=== PATIENT | male | born 1945 | race Native Hawaiian/Other Pacific Islander ===

== ENCOUNTER 2018-07-07 14:02 | Inpatient (IN) | payer OTHER, MEDICAID ==
[2018-07-07 14:33] VITALS: O2SAT 100
[2018-07-07 15:13] VITALS: BMI 21.4
--- NOTE | 2018-07-07 15:16 | ED PDOC ---
HPI: General Adult Time Seen by Provider: 07/07/18 14:48 Chief Complaint (Nursing): Psychiatric Evaluation History Per: Crate Builder Onset/Duration Of Symptoms: Unknown Current Symptoms Are (Timing): Still Present Severity: Moderate Additional Complaint(s): Referred by PMD for worsening cognitive status, noted today but has been gradually getting worse over past few weeks. Denies complaints at present time. H/o Parkinson's disease and poor historian. Crate Builder [id number]. Past Medical History Vital Signs: Last Vital Signs Temp 97.6 F 07/07/18 14:33 Pulse 63 07/07/18 14:33 Resp 20 07/07/18 14:33 BP 108/65 07/07/18 14:33 Pulse Ox 100 07/07/18 14:33 - Medical History PMH: Diabetes, Parkinson's Disease - Family History Family History: States: Unknown Family Hx - Allergies Allergies/Adverse Reactions: Allergies Allergy/AdvReac Type Severity Reaction Status Date / Time No Known Allergies Allergy Verified 07/07/18 14:31 Review of Systems ROS Statement: Except As Marked, All Systems Reviewed And Found Negative Neurological: Positive for: Weakness, Confusion Physical Exam - Reviewed Nursing Documentation Reviewed: Yes Vital Signs Reviewed: Yes - Physical Exam Appears: Positive for: Non-toxic, No Acute Distress Head Exam: Positive for: ATRAUMATIC, NORMAL INSPECTION, NORMOCEPHALIC Skin: Positive for: Normal Color, Warm, DRY Eye Exam: Positive for: EOMI, Normal appearance, PERRL ENT: Positive for: Normal ENT Inspection Neck: Positive for: Normal, Painless ROM Cardiovascular/Chest: Positive for: Regular Rate, Rhythm Respiratory: Positive for: CNT, Normal Breath Sounds Gastrointestinal/Abdominal: Positive for: Normal Exam, Soft Back: Positive for: Normal Inspection Extremity: Positive for: Normal ROM Neurological/Psych: Positive for: Awake, Mood/Affect (flat). Negative for: Normal Tone (Rigidity upper and lower ext), Motor/Sensory Deficits - Laboratory Results Result Diagrams: 07/07/18 15:00 07/07/18 15:00 - ECG O2 Sat by Pulse Oximetry: 100 Medical Decision Making Medical Decision Making: Medically stable for psychiatric admission Disposition - Clinical Impression Clinical Impression: Depression, Parkinson disease - Patient ED Disposition Is Patient to be Admitted: Yes - Disposition Disposition Time: 16:13 Condition: FAIR Forms: [employer] (Malaysian) - Pt Status Changed To: Hospital Disposition Of: Inpatient - Admit Certification Admit to Inpatient:: After my assessment, the patient will require hospitalization for at least two midnights. This is because of the severity of symptoms shown, intensity of services needed, and/or the medical risk in this patient being treated as an outpatient. - POA Present On Arrival: None
[2018-07-07 15:39] LABS: BASO % 0.3 % (0.0-2.0); EOS # 0.1 K/uL (0.0-0.7); EOS % 1.6 % (0.0-4.0); HEMOGLOBIN 11.7 g/dL (12.0-18.0); LYMPH # 2.1 K/uL (1.0-4.3); LYMPH % 36.7 % (20.0-40.0); MEAN CELL VOLUME 92.6 fl (80.0-94.0); MEAN CORPUSCULAR HEMOGLOBIN 30.9 pg (27.0-31.0); MEAN CORPUSCULAR HGB CONC 33.3 g/dL (33.0-37.0); MEAN PLATELET VOLUME 9.7 fl (7.2-11.7); MONO # 0.6 K/uL (0.0-0.8); MONO % 11.5 % (0.0-10.0); NEUT # 2.8 K/uL (1.8-7.0); NEUT % 49.9 % (50.0-75.0); NRBC % 0.1 % (0.0-0.0); RBC 3.79 Mil/uL (4.40-5.90); RED CELL DISTRIBUTION WIDTH 13.1 % (11.5-14.5); WHITE BLOOD COUNT 5.6 K/uL (4.8-10.8)
[2018-07-07 15:48] LABS: ALB/GLOB RATIO 1.3 (1.0-2.1); ALBUMIN 3.9 g/dL (3.5-5.0); ALT/SGPT 12 U/L (21-72); AST/SGOT 19 U/L (17-59); BLOOD UREA NITROGEN 19 mg/dl (9-20); CALCIUM 9.2 mg/dL (8.4-10.2); GFR NON-AFRICAN AMERICAN > 60
--- NOTE | 2018-07-07 17:32 | RAD ---
Date of service: 07/07/2018 PROCEDURE: CHEST RADIOGRAPH, 1 VIEW HISTORY: Parkinson's Disease COMPARISON: None available. FINDINGS: LUNGS: Clear. PLEURA: No pneumothorax or pleural fluid seen. CARDIOVASCULAR: No aortic atherosclerotic calcification present. Normal. OSSEOUS STRUCTURES: No significant abnormalities. VISUALIZED UPPER ABDOMEN: Normal. OTHER FINDINGS: None. IMPRESSION: No active disease.
[2018-07-07] MEDS ORDERED: Alum-Mag Hydrox-Simethicone Susp (30 mL) PO PRN (20:54)
[2018-07-07] MEDS ORDERED: Bismuth Subsalicylate 262 mg/15 ml Sus (240 ml) PO PRN (20:54)
[2018-07-07] MEDS ORDERED: Magnesium Hydroxide Susp 30 ml UD PO PRN (20:54)
--- NOTE | 2018-07-07 21:30 | PCM.BM ---
<Krishan Campos - Last Filed: 07/07/18 21:28> Treatment Plan Problems - Problems identified on initial assessmt Impuslive Sexual Acts Date Initiated: 07/07/18 Time Initiated: 21:29 Assessment reference: NA Status: Active Impaired Mobility/Physical Therapy Date Initiated: 07/07/18 Time Initiated: 21:29 Assessment reference: NA Status: Active Difficulty with ADLs Date Initiated: 07/07/18 Time Initiated: 21:30 Assessment reference: NA Status: Active Treatment assets and liabiliti Patient Assests: cooperative, good support system Patient Liabilities: dietary restrictions, medical problems - Milieu Protocol Maintain good personal hygiene: every shift Encourage regular showers, every shift Remind patient to perform daily oral care, every shift Assist patient to perform ADL's Maintain personal safety: daily Educate patient to report safety concerns to s jedf, daily Monitor environment for contraband/sharps Medication safety: Monitor for expected outcome, potential side effects: daily, Assess barriers to learning: daily, Assess readiness for medication education: daily <Tyrone Ugalde - Last Filed: 07/09/18 12:06> Family Contact Family involvement: Family/SO is involved Family contact: Patient agrees to contact, Family has been contacted by patient, Telephone contact initiated by staff Family contact name: Kiko (), See (Daughter), Leann (Daughter) Family contacted how many times per week?: 3 Family contact comment: Tutoring Assistant spoke with pt's daughter/POA, See [phone], to gather collateral information. Pt's daughter reported that pt was referred to [facility] by Dr. Toro because he was experiencing hypersexuality, aggressivity, agitation and visual hallucinations. See reported that pt has been yelling trying to get up, masturbating, grabbing breasts of caregivers and attempted to leave the home. See reported that pt will often see people that are not there and think that people are at the house door. See denied that pt has a prior psych history and was diagnosed with Parkinson's Disease in 2000, but became severely debilitated in 2004. See reported that pt's mother had Alzheimer's Disease. See reported that due to the medications too much Dopamine builds up causing these side effects and his medications need to be adjusted. Pt was born in [place] and emig[place] the [place] in the s. 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 See reported that pt requires a blended diet and if he does not abide by that he will experience diarrhea. - Goals for Treatment Patient goals for treatment: Pt unable to formulate goals due to dementia and Parkinson's Disease. Patient's family/SO goals for treatment: Pt's family would like pt's medications adjusted so that his Dopamine can be regulated and his agitation, hypersexuality and hallucinations controlled. Discharge/Continuing Care - Education Needs Education Needs: Family Medication, Family Diagnosis/Disease Process, Family Coping Skills, Family Community resources, Family Aftercare Safety Plan, Patient Medication, Patient Diagnosis/Disease Process, Patient Coping Skills, Patient Community resources, Patient Aftercare Safety Plan - Discharge Discharge Criteria: Tolerates medication w/o severe side effects, Free of paranoid thoughts, Free of agitation, Reduction of target symptoms Discharge to:: Home, With Family - Treatment Team Participation Discussed with Family/SO: Yes Was Patient/Family/SO present at Treatment Team Meeting: Yes
[2018-07-08 07:48] LABS: HDL CHOLESTEROL 48 MG/DL (30-70); IRON 72 ug/dL (49-181)
[2018-07-08 07:59] LABS: % IRON SATURATION 25 % (20-55); LDL CHOLESTEROL 89 mg/dL (0-129); TOTAL IRON BINDING CAPACITY 285 ug/dL (250-450)
[2018-07-08 08:24] LABS: FERRITIN 19.9 ng/Ml (17.9-464)
--- NOTE | 2018-07-08 10:34 | PCM.PSYCH ---
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 As per Dr. Watts, the patient has been diagnosed w/ Parkinsons for the last few years. The patient has been hypersexual at home and with the caregiver. For the last few weeks, the patient has been mas turbating. Dr. Watts stated that he would like the patient admitted to [facility] in order for a readjustment of his psychiatric medication in order to control his hypersexual behavior. Dr. Watts stated that the ideal medication for him would be Nuplavid. Dr. Watts has also witnessed some periods of hallucinations. Dr. Watts will take him back to the program once he is stabilized. Current Medications: Active Medications Generic Name Dose Route Start Last Admin Trade Name Freq PRN Reason Stop Dose Admin Acetaminophen 650 mg 07/07/18 20:54 Tylenol 325mg Tab PO Q4 PRN Pain, moderate (4-7) Al Hydrox/Mg Hydrox/Simethicone 30 ml 07/07/18 20:54 Maalox Plus 30 Ml PO Q4 PRN Dyspepsia Bismuth Subsalicylate 524 mg 07/07/18 20:54 Pepto-Bismol PO Q4 PRN Diarrhea Lorazepam 0.5 mg 07/07/18 20:54 Ativan PO 07/21/18 20:55 HS PRN Insomnia Lorazepam 0.5 mg 07/07/18 20:54 Ativan PO 07/21/18 20:55 Q6 PRN Anixety/Agitation Magnesium Hydroxide 30 ml 07/07/18 20:54 Milk Of Magnesia PO HS PRN Constipation Past Psychiatric History - Past Psychiatric History Explanation of prior treatment: history of dementia due to parkinson disease Pertinent Medical Hx (Current Medical&Sleep Prob, Allergies): Allergies Allergy/AdvReac Type Severity Reaction Status Date / Time No Known Allergies Allergy Verified 07/07/18 14:31 Acetaminophen [Tylenol Extra Strength] 1,000 mg PO BID 07/07/18 Carbidopa/Levodopa [Carbidopa-Levodopa 25-100 Tab] 1 tab PO QID 07/07/18 Cholecalciferol (Vitamin D3) [Vitamin D3] 2,000 unit PO DAILY 07/07/18 Famotidine [Pepcid] 20 mg PO BID 07/07/18 Melatonin 5 mg PO HS PRN 07/07/18 Multivitamin [Multi-Vitamin Daily] 1 tab PO DAILY 07/07/18 Pimavanserin Tartrate [Nuplazid] 34 mg PO DAILY 07/07/18 metFORMIN [glucOPHAGE] 500 mg PO BID 07/07/18 Mental Status Examination - Personal Presentation Personal Presentation: Looks older than stated age Additional comments: unkempt - Affect Additional comments: labile - Motor Activity Motor Activity: Psychomotor Retardation - Reliability in Providing Information Reliability in Providing Information: Poor, due to alteration in thoughts - Speech Speech: Irrelevant - Mood Mood: Anxious, Euphoric - Formal Thought Process Formal Thought Process: Flight of ideas, Word Salad - Cognitive Functions Orientation: Person Attention/Concentration: Easily distracted Judgement: Imparied, as evidence by: Lack of insight into illness - Strength & Assets Inventory Strength & Assets Inventory: Family support - Limitations Additional comments: medical illness DSM 5 DX - DSM 5 DSM 5 Diagnosis: 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
[2018-07-08 16:29] VITALS: RESP 18; TEMP 97.6
--- NOTE | 2018-07-08 19:09 | CARD ---
APPROVED REPORT Date of service: 07/07/2018 EKG Measurement Heart [id number] <Conclusion> Normal sinus rhythm Normal ECG
[2018-07-09 06:05] VITALS: BP 94/57; PULSE 57
[2018-07-09] MEDS ORDERED: Insulin Regular 100 units/ml SC SCH (07:30)
[2018-07-09] MEDS ORDERED: Enoxaparin 40 mg Syringe SC SCH (09:00)
[2018-07-09] MEDS ORDERED: Multivitamin With Minerals Tab PO SCH (09:00)
[2018-07-09] MEDS ORDERED: Cholecalciferol 1,000 INTLU TAB PO SCH (09:00)
[2018-07-09] MEDS ORDERED: Sodium Chloride 0.9% 2,000 ML IV SCH (12:00)
--- NOTE | 2018-07-09 12:00 | PCM.PYCHDC ---
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 referred to ER by private psychiatrist due to inappropriate behaviour as per family pt has been increasingly agitated , exhibiting inappropriate behaviour with hypersexuality,disinhibition and poor judgment pt on evaluation on the unit presenting with very limited speech that is irrelevant,thought process not goal directed , labile affect , appears internally preoccupied Laboratory Data: Abnormal Lab Results 07/08/18 07/08/18 07/08/18 06:15 06:15 19:55 POC Glucose (mg/dL) 232 H Hemoglobin A1c 7.5 H RPR Nonreactive 07/09/18 06:06 POC Glucose (mg/dL) 120 H Hemoglobin A1c RPR Consultations:: List each consultation separately and include: 1. Reason for request. 2. Findings. 3. Follow-up Summary of Hospital Course include:: 1. Description of specific treatment plan utilized for patients during their course of treatmen. 2. Summarize the time- course for resolution of acute symptoms and/or regressed behaviors. 3. Describe issues identified and worked on during hospitalization. 4. Describe medication utilized. 5. Describe medical problems identified and treated. 6. Reassessment of suicide risk Summary of Hospital Course: on second day of hospitalization, pt was noted to be unresponsive by nursing staff an QUALITY CONTROL TECH [employer] was called, pt was transferred to ER for further work up - Final Diagnosis (DSM 5) Condition upon Discharge: FAIR DSM 5: MAJOR NEUROCOGNITIVE DISORDER DUE TO PARKINSON Follow-up Treatment Plan: private psychiatrist requesting pt to be places on Nuedexta/ possibly for emotional liability / medicine not available will start seroquel 12.5mg bid and qhs monitor pt for psychopharmacological effects and side effect profile neuropsychological testing if possible to rule out fronto temporal dementia internal medicine consult neurology consult - Antipsychotic Medications Pt discharged on 2 or more routine antipsychotic medications: No
[2018-07-09] MEDS ORDERED: Iodixanol 320 MG/ML 100 ML BOTTLE IV ONE (12:05)
[2018-07-09] MEDS ORDERED: Sodium Chloride 0.9% 50 ML IV ONE (12:06)
--- NOTE | 2018-07-09 12:41 | CT ---
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 TECHNIQUE: Contiguous axial images of the neck and brain were obtained from the level of the vertex of the skull to the superior mediastinum in the arteriographic phase of enhancement. Coronal and sagittal reformats or also generated. IV contrast dose: 100 cc Visipaque 320 contrast material. Radiation dose: Total exam DLP = 399.16 mGy-cm. This CT exam was performed using one or more of the following dose reduction techniques: Automated exposure control, adjustment of the mA and/or kV according to patient size, and/or use of iterative reconstruction technique. FINDINGS: The aortic arch widely patent with tiny focus of atherosclerotic plaque. Minor crescentic calcified plaque seen along the proximal left subclavian artery just proximal to the take-off of the left vertebral artery.. the common carotid arteries widely patent with tiny calcified plaque seen along the posterior distal margin of the right common carotid artery with no significant stenosis. No evidence of dissection. The distal internal carotid arteries including the petrous cavernous and supraclinoid segments are widely patent. The vertebral arteries are patent throughout left-sided which is larger in caliber/more dominant than the right. Basilar artery patent. The visualized major branches pictcj-gr-Tparax are patent. Slight asymmetry of the A1 segments left-sided which is larger in caliber/more dominant than the right-side. The distal margins of the anterior middle and posterior cerebral arteries are also patent and relatively symmetric. No evidence of large aneurysm nor vascular malformation. OTHER FINDINGS: None IMPRESSION: No evidence of dissection, occlusion or significant stenosis. There is a tiny calcified plaque posterior margin distal right common carotid artery near the bifurcation with no evidence of significant stenosis
--- NOTE | 2018-07-09 12:59 | PCM.RRT ---
DYE JIG OPERATOR Nurse Assessment - Situation DYE JIG OPERATOR Responder Arrival Time: 11:25 DYE JIG OPERATOR Reason for Call: Bradycardia, Change in Mental Status - IV IV Inserted during DYE JIG OPERATOR?: Yes New IV Insertion Tolerance:: Fair - Respiratory Received Nebulizer Treatments: No Was the Patient Ventilated with Bag/Mask 100% O2?: No Secretions Suctioned?: No Was the Patient Intubated?: No Was the Patient Placed on a Ventilator?: No - Medication Medications Administered During DYE JIG OPERATOR: NS Bolus - Diagnostic Test Ordered EKG: Yes Chest X-Ray: No CT Scan: Yes CPR started during DYE JIG OPERATOR?: No I.Reason for DYE JIG OPERATOR - A) Acute Change in Patient: (Select all that apply): Staff member or family is worried about patient, Acute change in mental status Subjective: 72 y/o M with PMhx of dementia, parkinson's disease and DM admitted to [facility] for inappropriate behavior. DYE JIG OPERATOR called by RN at 11:24 due to patient being unresponsive. DYE JIG OPERATOR team arrived on site with Dr. Julien. Patient unresponsive to verbal and tactile stimuli. Initial vitals: HR 46, BP 53/21, Initial accuckeck 211. On physical exam: Patient is unresponsive to commends and deep tactile stimulus. Bradycardia. Breath sounds present. Bolus of food on back of toung(removed). IV line inserted and patient started on NS bolus. Patient reg ained consciousness, moving all his extremity, opening eyes, responding verbally(In words, unable to formulate full sentence). Repeat Vitals BP 73/44. Unable to get EKG due to hairy chest. CT head ordered. Patient transported to ER for further evaluation including CT head. - Neurological Status (Select all that apply): Confused, Lethargic, Weakness Other (Please specify): Nonrespinsive but became responsive, alert, following commands after 5-7min - Constitutional Appears: Confused - Head Head Exam: ATRAUMATIC, NORMAL INSPECTION, NORMOCEPHALIC - Respiratory Exam Respiratory Exam: Clear to Ausculation Bilateral, NORMAL BREATHING PATTERN - Cardiovascular Exam Cardiovascular Exam: Bradycardia, +S1, +S2 - Neurological Exam Neurological Exam: Alert, Altered, Awake. absent: Oriented x3 Plan - Assessment of Findings&Treatment Plan 72 y/o M with PMhx of dementia, parkinson's disease and DM admitted to [facility] for inappropriate behavior. DYE JIG OPERATOR called by RN at 11:24 due to patient being unresponsive. Initial vitals: HR 46, BP 53/21, Initial accuckeck 211. Repeat Vitals BP 73/44 A/P: 72 y/o M with DM, parkinson and dementia. DYE JIG OPERATOR called for change in mental status. Hypotension and Bradycardia likely secondary to psych medications. - IV inserted, NS bolus started - EKG ordered stat, Unable to obtain in Psych unit, TO be dine in ED - CT head stat - Patient regained consciousness, responding - Transferred to ED for further evaluation Case discussed with Dr. Julien
[2018-07-10 21:53] LABS: FOLATE > 20.0 ng/mL
--- NOTE | 2018-07-11 10:31 | CP.PCM.HP ---
History of Present Illness - History of Present Illness History of Present Illness: CC: Refrred by the Psychiatrist for adjustment f medication History of Present Illness A 72yoM with H/O Parkinsonism, Hypotension and Psychotic behaviour was sent to [facility] for Geropsych admission due to Behavioral issues including Visual Hallucination and Hypersexuality. Patient is on Sinemet, and will adjust to avoid psychotic behaviour. Present on Admission - Present on Admission Any Indicators Present on Admission: No Review of Systems - Review of Systems All systems: reviewed and no additional remarkable complaints except Review of Systems: as per HPI Past Patient History - Past Medical History & Family History Past Medical History?: Yes Past Family History: Reviewed and not pertinent - Past Social History Smoking Status: Unknown If Ever Smoked Alcohol: None Drugs: Denies - CARDIAC Hx Cardiac Disorders: No Hx Hypertension: No - PULMONARY Hx Tuberculosis: No - NEUROLOGICAL HX Cerebrovascular Accident: No Hx Seizures: No - ENDOCRINE/METABOLIC Hx Diabetes Mellitus Type 2: Yes - HEMATOLOGICAL/ONCOLOGICAL Hx Cancer: Yes Hx Human Immunodeficiency Virus (HIV): No - MUSCULOSKELETAL/RHEUMATOLOGICAL Hx Falls: No - GENITOURINARY/GYNECOLOGICAL Hx Sexually Transmitted Disorders: No - PSYCHIATRIC Hx Substance Use: No Meds Home Medications: Home Medication List Medication Instructions Recorded Confirmed Type Acetaminophen [Tylenol 325mg tab] 650 mg PO Q4 PRN tab 07/09/18 Rx Aluminum Hydroxide/Magnesium 30 ml PO Q4 PRN udc 07/09/18 Rx [Maalox Plus 30 ml] Bismuth Subsalicylate 524 mg PO Q4 PRN dose 07/09/18 Rx [Pepto-Bismol] Carbidopa/Levodopa 25/100 mg 1 tab PO QID tab 07/09/18 Rx [Sinemet] Cholecalciferol [Vitamin D 1000 IU] 1,000 intlu PO DAILY tab 07/09/18 Rx Enoxaparin [Lovenox] 40 mg SC DAILY syr 07/09/18 Rx Insulin Human Regular [HumuLIN R] 0 units SC ACHS ml 07/09/18 Rx LORazepam [Ativan] 0.5 mg PO Q6 PRN tab 07/09/18 Rx Magnesium Hydroxide [Milk Of 30 ml PO HS PRN udc 07/09/18 Rx Magnesia] Multimineral/Multivitamin 1 tab PO DAILY tab 07/09/18 Rx [Therapeutic-M Tab] QUEtiapine [Seroquel] 12.5 mg PO HS tab 07/09/18 Rx Allergies/Adverse Reactions: Allergies Allergy/AdvReac Type Severity Reaction Status Date / Time No Known Allergies Allergy Verified 07/07/18 14:31 Physical Exam - Constitutional Appears: No Acute Distress, Cachectic, Chronically Ill - Head Exam Head Exam: ATRAUMATIC, NORMAL INSPECTION, NORMOCEPHALIC - Eye Exam Eye Exam: EOMI, Normal appearance, PERRL Pupil Exam: NORMAL ACCOMODATION, PERRL - ENT Exam ENT Exam: Mucous Membranes Dry, Normal Exam - Neck Exam Neck exam: Positive for: Normal Inspection - Respiratory Exam Respiratory Exam: Clear to Auscultation Bilateral, NORMAL BREATHING PATTERN - Cardiovascular Exam Cardiovascular Exam: REGULAR RHYTHM, +S1, +S2 - GI/Abdominal Exam GI & Abdominal Exam: Normal Bowel Sounds, Soft. absent: Tenderness - Extremities Exam Extremities exam: Positive for: normal capillary refill, normal inspection - Back Exam Back exam: NORMAL INSPECTION - Neurological Exam Neurological exam: Abnormal Gait, Altered, Motor Sensory Deficit - Psychiatric Exam Psychiatric exam: Normal Affect, Normal Mood - Skin Skin Exam: Dry, Intact, Normal Color, Warm Results - Vital Signs Recent Vital Signs: Last Vital Signs Temp 97.6 F 07/09/18 06:00 Pulse 57 L 07/09/18 06:00 Resp 18 07/09/18 06:00 BP 94/57 L 07/09/18 06:00 Pulse Ox 100 07/07/18 20:10 - Labs Result Diagrams: 07/07/18 15:00 07/07/18 15:00 Labs: Laboratory Results - last 24 hr 07/08/18 06:15 Folate > 20.0 - Imaging and Cardiology Chest x-ray Status: Report reviewed by me Additional comment: Date of service: 07/07/2018 PROCEDURE: CHEST RADIOGRAPH, 1 VIEW HISTORY: Parkinson's Disease COMPARISON: None available. FINDINGS: LUNGS: Clear. PLEURA: No pneumothorax or pleural fluid seen. CARDIOVASCULAR: No aortic atherosclerotic calcification present. Normal. OSSEOUS STRUCTURES: No significant abnormalities. VISUALIZED UPPER ABDOMEN: Normal. OTHER FINDINGS: None. IMPRESSION: No active disease. 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
--- NOTE | 2018-07-11 10:31 | CP.PCM.PN ---
Subjective - Date & Time of Evaluation Date of Evaluation: 07/08/18 Time of Evaluation: 19:20 - Subjective Subjective: NO new complaint. Objective - Vital Signs/Intake and Output Vital Signs (last 24 hours): Temp Pulse Resp BP Pulse Ox 97.6 F 57 L 18 94/57 L 100 07/09/18 06:00 07/09/18 06:00 07/09/18 06:00 07/09/18 06:00 07/07/18 20:10 - Labs Labs: 07/07/18 15:00 07/07/18 15:00 Assessment and Plan (1) Parkinson disease Status: Acute (2) Psychotic affective disorder Status: Acute (3) Dementia Status: Chronic (4) Depression Status: Chronic - Assessment and Plan (Free Text) Plan: Continue Current Care
== END 2018-07-09 11:55 | disposition short-term general hospital (02) | DRG 884 ==
LOC: H.ER 14:02 → H.ERHOLD 16:14 → H.STEP 20:40
PROVIDERS: ADMIT Psychiatry & Neurology Psychiatry; ATTEND Psychiatry & Neurology Psychiatry
PROC: GZ51ZZZ Individual Psychotherapy, Behavioral (ICD-10-PCS; principal; 2018-07-07)
PROC: GZ56ZZZ Individual Psychotherapy, Supportive (ICD-10-PCS; 2018-07-07)
DX: F02.80 Dementia in other diseases classified elsewhere, unspecified severity, without behavioral disturbance, psychotic disturbance, mood disturbance, and anxiety (principal); E11.9 Type 2 diabetes mellitus without complications; F32.9 Major depressive disorder, single episode, unspecified; G20 Parkinson's disease; R00.1 Bradycardia, unspecified; I95.9 Hypotension, unspecified; R41.82 Altered mental status, unspecified

== ENCOUNTER 2018-07-09 12:13 | Observation (INO) | payer OTHER, MEDICAID ==
[2018-07-09 12:13] VITALS: BMI 21.4
[2018-07-09] MEDS ORDERED: Sodium Chloride 0.9% 1,000 ML IV STA (12:36)
[2018-07-09 13:14] LABS: VENOUS BLOOD GAS BASE EXCESS 0.6 mmol/L (0.0-2.0); VENOUS BLOOD GAS PCO2 57 mmHg (40-60); VENOUS BLOOD GAS PO2 17 mm/Hg (30-55)
[2018-07-09 13:16] LABS: BASO % 0.5 % (0.0-2.0); EOS # 0.1 K/uL (0.0-0.7); EOS % 1.5 % (0.0-4.0); HEMOGLOBIN 10.7 g/dL (12.0-18.0); LYMPH # 1.2 K/uL (1.0-4.3); LYMPH % 24.1 % (20.0-40.0); MEAN CELL VOLUME 92.2 fl (80.0-94.0); MEAN CORPUSCULAR HEMOGLOBIN 30.1 pg (27.0-31.0); MEAN CORPUSCULAR HGB CONC 32.6 g/dL (33.0-37.0); MEAN PLATELET VOLUME 9.3 fl (7.2-11.7); MONO # 0.4 K/uL (0.0-0.8); MONO % 8.4 % (0.0-10.0); NEUT # 3.1 K/uL (1.8-7.0); NEUT % 65.5 % (50.0-75.0); RBC 3.55 Mil/uL (4.40-5.90); RED CELL DISTRIBUTION WIDTH 13.5 % (11.5-14.5); WHITE BLOOD COUNT 4.8 K/uL (4.8-10.8)
[2018-07-09 13:25] LABS: ALB/GLOB RATIO 1.2 (1.0-2.1); ALBUMIN 3.4 g/dL (3.5-5.0); ALT/SGPT 16 U/L (21-72); AST/SGOT 19 U/L (17-59); BLOOD UREA NITROGEN 18 mg/dl (9-20); CALCIUM 8.5 mg/dL (8.4-10.2); GFR NON-AFRICAN AMERICAN > 60
--- NOTE | 2018-07-09 13:44 | ED PDOC ---
Syncope/Near Syncope/Dizziness Time Seen by Provider: 07/09/18 12:18 Chief Complaint (Nursing): Dizziness/Lightheaded History Per: Other (Mr. Kaur was transferred from the Geropsych unit after an SOFTWARE ENGINEERING MANAGER was called due to low BP while he was eating. According to Dr. Crandall, his PMD, this patient has had episodes of low blood pressure in the past. Patient was started on IV fluids prior to transfer to the ER. On arrival, he is awake alert and cooperative. His mucous membrane is dry. He is cooperative when addresses but his speech is hard to understand.) Past Medical History Reviewed: Historical Data Vital Signs: Last Vital Signs Temp Pulse 74 07/09/18 13:08 Resp 15 07/09/18 13:08 BP 139/73 07/09/18 13:08 Pulse Ox 99 07/09/18 13:08 - Medical History PMH: Depression, Parkinson's Disease Denies: Diabetes, Hepatitis, HIV, HTN, Seizures, Sexually Transmitted Disease - Family History Family History: States: Unknown Family Hx - Immunization History Hx Tetanus Toxoid Vaccination: No Hx Influenza Vaccination: No Hx Pneumococcal Vaccination: No - Home Medications Home Medications: Ambulatory Orders Medication Instructions Recorded Acetaminophen [Tylenol Extra 1,000 mg PO BID 07/07/18 Strength] Carbidopa/Levodopa 1 tab PO QID 07/07/18 [Carbidopa-Levodopa 25-100 Tab] Cholecalciferol (Vitamin D3) 2,000 unit PO DAILY 07/07/18 [Vitamin D3] Famotidine [Pepcid] 20 mg PO BID 07/07/18 Melatonin 5 mg PO HS PRN 07/07/18 Multivitamin [Multi-Vitamin Daily] 1 tab PO DAILY 07/07/18 Pimavanserin Tartrate [Nuplazid] 34 mg PO DAILY 07/07/18 metFORMIN [glucOPHAGE] 500 mg PO BID 07/07/18 Acetaminophen [Tylenol 325mg tab] 650 mg PO Q4 PRN tab 07/09/18 Aluminum Hydroxide/Magnesium 30 ml PO Q4 PRN udc 07/09/18 [Maalox Plus 30 ml] Bismuth Subsalicylate 524 mg PO Q4 PRN dose 07/09/18 [Pepto-Bismol] Carbidopa/Levodopa 25/100 mg 1 tab PO QID tab 07/09/18 [Sinemet] Cholecalciferol [Vitamin D 1000 IU] 1,000 intlu PO DAILY tab 07/09/18 Enoxaparin [Lovenox] 40 mg SC DAILY syr 07/09/18 Famotidine [Pepcid] 20 mg PO BID tab 07/09/18 Insulin Human Regular [HumuLIN R] 0 units SC ACHS ml 07/09/18 LORazepam [Ativan] 0.5 mg PO Q6 PRN tab 07/09/18 Magnesium Hydroxide [Milk Of 30 ml PO HS PRN udc 07/09/18 Magnesia] Multimineral/Multivitamin 1 tab PO DAILY tab 07/09/18 [Therapeutic-M Tab] QUEtiapine [Seroquel] 12.5 mg PO HS tab 07/09/18 metFORMIN [glucOPHAGE] 500 mg PO BID tab 07/09/18 - Allergies Allergies/Adverse Reactions: Allergies Allergy/AdvReac Type Severity Reaction Status Date / Time No Known Allergies Allergy Verified 07/07/18 14:31 Review of Systems ROS Statement: Except As Marked, All Systems Reviewed And Found Negative Constitutional: Negative for: Fever Cardiovascular: Negative for: Chest Pain Respiratory: Negative for: Cough Physical Exam - Reviewed Nursing Documentation Reviewed: Yes Vital Signs Reviewed: Yes - Physical Exam Appears: Positive for: Well, Non-toxic, No Acute Distress Head Exam: Positive for: ATRAUMATIC, NORMAL INSPECTION, NORMOCEPHALIC Skin: Positive for: Normal Color, Warm, DRY Eye Exam: Positive for: EOMI, Normal appearance, PERRL ENT: Positive for: Normal ENT Inspection Neck: Positive for: Normal, Painless ROM Cardiovascular/Chest: Positive for: Regular Rate, Rhythm Respiratory: Positive for: CNT, Normal Breath Sounds Gastrointestinal/Abdominal: Positive for: Normal Exam, Soft Back: Positive for: Normal Inspection Extremity: Positive for: Normal ROM Neurological/Psych: Positive for: Awake, Alert, Normal Tone - Laboratory Results Result Diagrams: 07/09/18 12:55 07/09/18 12:55 Lab Results: pO2 17 mm/Hg (30-55) L 07/09/18 12:48 VBG pH 7.30 (7.32-7.43) L 07/09/18 12:48 VBG pCO2 57 mmHg (40-60) 07/09/18 12:48 VBG HCO3 23.6 mmol/L 07/09/18 12:48 VBG Total CO2 29.7 mmol/L (22-28) H 07/09/18 12:48 VBG O2 Sat (Calc) 25.0 % (40-65) L 07/09/18 12:48 VBG Base Excess 0.6 mmol/L (0.0-2.0) 07/09/18 12:48 VBG Potassium 4.3 mmol/L (3.6-5.2) 07/09/18 12:48 Sodium 137.0 mmol/L (132-148) 07/09/18 12:48 Chloride 108.0 mmol/L (98-107) H 07/09/18 12:48 Glucose 138 mg/dL (75-110) H 07/09/18 12:48 Lactate 1.1 mmol/L (0.7-2.1) 07/09/18 12:48 FiO2 21.0 % 07/09/18 12:48 Total Bilirubin 0.8 mg/dl (0.2-1.3) 07/09/18 12:55 AST 19 U/L (17-59) 07/09/18 12:55 ALT 16 U/L (21-72) L D 07/09/18 12:55 Alkaline Phosphatase 72 U/L (38-126) 07/09/18 12:55 Total Protein 6.1 G/DL (6.3-8.2) L 07/09/18 12:55 Albumin 3.4 g/dL (3.5-5.0) L 07/09/18 12:55 Globulin 2.7 gm/dL (2.2-3.9) 07/09/18 12:55 Albumin/Globulin Ratio 1.2 (1.0-2.1) 07/09/18 12:55 - ECG O2 Sat by Pulse Oximetry: 99 Medical Decision Making Medical Decision Making: CAse d/w Dr. Heller Advised that patient to be returned to his usual location Disposition - Clinical Impression Clinical Impression: Dizziness - Patient ED Disposition Is Patient to be Admitted: No Doctor Will See Patient In The: Office Counseled Patient/Family Regarding: Diagnosis, Need For Followup - Disposition Disposition: Transfer of Care Disposition Time: 13:46 Condition: STABLE Instructions: Dizziness, Nonvertigo, (DC) - Pt Status Changed To: Hospital Disposition Of: Inpatient - Admit Certification Admit to Inpatient:: After my assessment, the patient will require hospitalization for at least two midnights. This is because of the severity of symptoms shown, intensity of services needed, and/or the medical risk in this patient being treated as an outpatient.
--- NOTE | 2018-07-09 15:26 | ED PDOC ---
- Laboratory Results Result Diagrams: 07/09/18 12:55 07/09/18 12:55 Lab Results: pO2 17 mm/Hg (30-55) L 07/09/18 12:48 VBG pH 7.30 (7.32-7.43) L 07/09/18 12:48 VBG pCO2 57 mmHg (40-60) 07/09/18 12:48 VBG HCO3 23.6 mmol/L 07/09/18 12:48 VBG Total CO2 29.7 mmol/L (22-28) H 07/09/18 12:48 VBG O2 Sat (Calc) 25.0 % (40-65) L 07/09/18 12:48 VBG Base Excess 0.6 mmol/L (0.0-2.0) 07/09/18 12:48 VBG Potassium 4.3 mmol/L (3.6-5.2) 07/09/18 12:48 Sodium 137.0 mmol/L (132-148) 07/09/18 12:48 Chloride 108.0 mmol/L (98-107) H 07/09/18 12:48 Glucose 138 mg/dL (75-110) H 07/09/18 12:48 Lactate 1.1 mmol/L (0.7-2.1) 07/09/18 12:48 FiO2 21.0 % 07/09/18 12:48 Total Bilirubin 0.8 mg/dl (0.2-1.3) 07/09/18 12:55 AST 19 U/L (17-59) 07/09/18 12:55 ALT 16 U/L (21-72) L D 07/09/18 12:55 Alkaline Phosphatase 72 U/L (38-126) 07/09/18 12:55 Total Protein 6.1 G/DL (6.3-8.2) L 07/09/18 12:55 Albumin 3.4 g/dL (3.5-5.0) L 07/09/18 12:55 Globulin 2.7 gm/dL (2.2-3.9) 07/09/18 12:55 Albumin/Globulin Ratio 1.2 (1.0-2.1) 07/09/18 12:55 - ECG O2 Sat by Pulse Oximetry: 99 - Progress ED Course And Treament: 3p Rec'd endorsement from Dr Rai. Pt sent for eval from Geropsych unit for low BP. BP chronic issue due to pt's autonomic dysfunction. Improved with IVF and no other findings to account for low BP. Pending dispo. 325p DW Dr Jon PMD who advised observation for hypotension and will likely re- [facility] at a later time. Disposition - Clinical Impression Clinical Impression: Dizziness, Parkinson disease - POA Present On Arrival: None - Disposition Disposition: Hospitalized as Observation Patient Disposition Time: 15:26 Condition: STABLE
[2018-07-09] MEDS ORDERED: Carbidopa/Levodopa 25/250 PO STA (15:38)
--- NOTE | 2018-07-09 19:33 | CP.PCM.HP ---
History of Present Illness - History of Present Illness History of Present Illness: CC: Hypotension History of Present Illness: A 72yoM with H/O Parkinsonism, and Dementia with Behaviour was in Geropsych when an AIRPLANE TUBE BUILDER was called due to low BP while he was eating. The patient has had episodes of low blood pressure in the past. Patient was started on IV fluids prior to transfer to the ER. On arrival, he is awake alert and cooperative. His mucous membrane is dry. He is cooperative when addresses but his speech is hard to understand. Patient was kept under observation for Hypotension. Present on Admission - Present on Admission Any Indicators Present on Admission: No Review of Systems - Review of Systems All systems: reviewed and no additional remarkable complaints except Review of Systems: as per HPI Past Patient History - Past Medical History & Family History Past Medical History?: Yes Past Family History: Reviewed and not pertinent - Past Social History Smoking Status: Never Smoked Alcohol: None Drugs: Denies - CARDIAC Hx Cardiac Disorders: No - PULMONARY Hx Tuberculosis: No - NEUROLOGICAL Hx Parkinson's Disease: Yes Hx Seizures: No - ENDOCRINE/METABOLIC Hx Endocrine Disorders: Yes Hx Diabetes Mellitus Type 2: Yes - HEMATOLOGICAL/ONCOLOGICAL Hx Human Immunodeficiency Virus (HIV): No - MUSCULOSKELETAL/RHEUMATOLOGICAL Hx Falls: No - GENITOURINARY/GYNECOLOGICAL Hx Sexually Transmitted Disorders: No - PSYCHIATRIC Hx Psychophysiologic Disorder: Yes Hx Substance Use: No Meds Allergies/Adverse Reactions: Allergies Allergy/AdvReac Type Severity Reaction Status Date / Time No Known Allergies Allergy Verified 07/07/18 14:31 Physical Exam - Constitutional Appears: No Acute Distress, Cachectic, Chronically Ill - Head Exam Head Exam: ATRAUMATIC, NORMAL INSPECTION, NORMOCEPHALIC - Eye Exam Eye Exam: EOMI, Normal appearance, PERRL Pupil Exam: NORMAL ACCOMODATION, PERRL - ENT Exam ENT Exam: Mucous Membranes Dry, Normal Exam - Neck Exam Neck exam: Positive for: Normal Inspection - Respiratory Exam Respiratory Exam: Clear to Auscultation Bilateral, NORMAL BREATHING PATTERN - Cardiovascular Exam Cardiovascular Exam: REGULAR RHYTHM, +S1, +S2 - GI/Abdominal Exam GI & Abdominal Exam: Normal Bowel Sounds, Soft. absent: Tenderness - Extremities Exam Extremities exam: Positive for: normal inspection - Back Exam Back exam: NORMAL INSPECTION - Neurological Exam Neurological exam: Abnormal Gait, Alert, Motor Sensory Deficit - Psychiatric Exam Psychiatric exam: Flat Affect - Skin Skin Exam: Dry, Intact, Normal Color, Warm Results - Vital Signs Recent Vital Signs: Last Vital Signs Temp 97.2 F L 07/09/18 17:42 Pulse 54 L 07/09/18 17:42 Resp 20 07/09/18 17:42 BP 107/62 07/09/18 17:42 Pulse Ox 98 07/09/18 17:42 - Labs Result Diagrams: 07/09/18 12:55 07/09/18 12:55 Labs: Laboratory Results - last 24 hr 07/09/18 07/09/18 07/09/18 12:48 12:55 12:55 WBC 4.8 RBC 3.55 L Hgb 10.7 L Hct 32.8 L MCV 92.2 MCH 30.1 MCHC 32.6 L RDW 13.5 Plt Count 172 MPV 9.3 Neut % (Auto) 65.5 Lymph % (Auto) 24.1 [place] % (Auto) 8.4 Eos % (Auto) 1.5 Baso % (Auto) 0.5 Neut # (Auto) 3.1 Lymph # (Auto) 1.2 [place] # (Auto) 0.4 Eos # (Auto) 0.1 Baso # (Auto) 0.0 pO2 17 L VBG pH 7.30 L VBG pCO2 57 VBG HCO3 23.6 VBG Total CO2 29.7 H VBG O2 Sat (Calc) 25.0 L VBG Base Excess 0.6 VBG Potassium 4.3 Sodium 137.0 138 Chloride 108.0 H 105 Glucose 138 H Lactate 1.1 FiO2 21.0 Potassium 4.4 Carbon Dioxide 27 Anion Gap 10 BUN 18 Creatinine 1.0 Est GFR ( Amer) > 60 Est GFR (Non-Af Amer) > 60 Random Glucose 128 H Calcium 8.5 Total Bilirubin 0.8 AST 19 ALT 16 L D Alkaline Phosphatase 72 Total Protein 6.1 L Albumin 3.4 L Globulin 2.7 Albumin/Globulin Ratio 1.2 Venous Blood Potassium 4.3 - EKG Data EKG Interpreted by: Myself EKG shows normal: Sinus rhythm Rate: Normal Assessment & Plan (1) Hypotension Status: Acute (2) Dehydration Status: Acute Priority: Medium (3) Autonomic dysfunction Status: Acute (4) Dementia Status: Acute (5) Depression Status: Acute (6) Dizziness Status: Acute (7) Parkinson disease Status: Acute - Assessment and Plan (Free Text) Plan: IVF Continue Current Care as per MAR
[2018-07-09] MEDS ORDERED: Magnesium Hydroxide Susp 30 ml UD PO PRN (20:02)
[2018-07-09] MEDS ORDERED: Bismuth Subsalicylate 262 mg/15 ml Sus (240 ml) PO PRN (20:02)
[2018-07-09] MEDS: Sodium Chloride 0.9% 1,000 ML IV SCH ×2 (21:00)
[2018-07-09] MEDS: Insulin Lispro (humaLOG) 100 Units/ml Inj SC SCH (22:33)
[2018-07-10] MEDS: Insulin Lispro (humaLOG) 100 Units/ml Inj SC SCH ×3 (08:22→17:14)
[2018-07-10] MEDS ORDERED: Multivitamin With Minerals Tab PO SCH ×2 (09:00)
[2018-07-10] MEDS ORDERED: PIMAVANSERIN TARTRATE 34 MG PO SCH (09:00)
[2018-07-10] MEDS ORDERED: Cholecalciferol 1,000 INTLU TAB PO SCH (09:00)
[2018-07-10] MEDS ORDERED: Enoxaparin 40 mg Syringe SC SCH (09:00)
--- NOTE | 2018-07-10 09:11 | CARD ---
APPROVED REPORT Date of service: 07/09/2018 EKG Measurement Heart [id number] <Conclusion> Normal sinus rhythm Nonspecific ST abnormality Abnormal ECG
[2018-07-10] MEDS: Sodium Chloride 0.9% 1,000 ML IV SCH (09:39)
--- NOTE | 2018-07-10 12:30 | CP.PCM.CON ---
History of Present Illness - History of Present Illness History of Present Illness: Psychiatry consult note CC: "I'm okay." HPI: 72 yo male w/ h/o Parkinson's disease, initially admitted to geriatric psychiatry unit for behavioral disturbances, transferred to the medical unit for acute hypotension. Patient is currently calm and cooperative w/o any behavioral issues. Patient has dementia, is only oriented x self and is not able to provide any relevant history to pattern chart writer. Polishing Machine Operator Helper spoke to patient's daughter, See, who was present in the afternoon. She reports that her family does not want the patient treated on a psychiatry unit and believes that his behavioral issues are secondary to changes in his Parkinson's medications. They want him to be primarily managed by the neurologist at this time and do not believe he needs acute psychiatric treatment. She does not believe he is an acute danger to himself or others and feels safe bringing the patient home. Patient denies acute depression/anxiety/AH/VH/SI/HI to pattern chart writer. Impression: 72 yo male w/ h/o Parkinson's disease, no acute behavioral issues; patient has chronic neurocognitive deficits. -Patient is psychiatrically clear for discharge as the family does not want acute psychiatric treatment at this time -Recommend neurology consult or outpatient neurology treatment for continued management of parkinson's disease Past Patient History - Past Medical History & Family History Past Medical History?: Yes - Past Social History Smoking Status: Never Smoked - CARDIAC Hx Cardiac Disorders: No - PULMONARY Hx Tuberculosis: No - NEUROLOGICAL Hx Parkinson's Disease: Yes Hx Seizures: No - ENDOCRINE/METABOLIC Hx Endocrine Disorders: Yes Hx Diabetes Mellitus Type 2: Yes - HEMATOLOGICAL/ONCOLOGICAL Hx Human Immunodeficiency Virus (HIV): No - MUSCULOSKELETAL/RHEUMATOLOGICAL Hx Falls: No - GENITOURINARY/GYNECOLOGICAL Hx Sexually Transmitted Disorders: No - PSYCHIATRIC Hx Psychophysiologic Disorder: Yes Hx Substance Use: No Meds Allergies/Adverse Reactions: Allergies Allergy/AdvReac Type Severity Reaction Status Date / Time No Known Allergies Allergy Verified 07/07/18 14:31 - Medications Medications: Current Medications Acetaminophen (Tylenol 325mg Tab) 975 mg PO BID [facility] Last Admin: 07/10/18 09:38 Dose: 975 mg Bismuth Subsalicylate (Pepto-Bismol) 524 mg PO Q4 PRN PRN Reason: Diarrhea Carbidopa/Levodopa (Sinemet) 1 tab PO QID [facility] Last Admin: 07/09/18 22:12 Dose: 1 tab Cholecalciferol (Vitamin D) 1,000 intlu PO DAILY [facility] Last Admin: 07/10/18 09:40 Dose: 1,000 intlu Enoxaparin Sodium (Lovenox) 40 mg SC DAILY [facility]; Protocol Famotidine (Pepcid) 20 mg PO BID [facility] Home Med (Melatonin [Melatonin]) 5 mg PO HS PRN PRN Reason: Sleep Home Med (Pimavanserin Tartrate [Nuplazid]) 34 mg PO DAILY [facility] Sodium Chloride (Sodium Chloride 0.9%) 1,000 mls @ 75 mls/hr IV .[id number] [facility] Stop: 07/10/18 20:12 Last Admin: 07/10/18 09:39 Dose: 75 mls/hr Insulin Human Lispro (Humalog) 0 units SC ACHS [facility]; Protocol Last Admin: 07/10/18 08:22 Dose: Not Given Lorazepam (Ativan) 0.5 mg PO Q6 PRN PRN Reason: Anixety/Agitation Last Admin: 07/10/18 09:38 Dose: 0.5 mg Magnesium Hydroxide (Milk Of Magnesia) 30 ml PO HS PRN PRN Reason: Constipation Metformin HCl (Glucophage) 500 mg PO BID [facility] Last Admin: 07/10/18 09:40 Dose: 500 mg Multivitamins/Minerals (Therapeutic-M Tab) 1 tab PO DAILY [facility] Multivitamins/Minerals (Therapeutic-M Tab) 1 tab PO DAILY [facility] Last Admin: 07/10/18 09:39 Dose: 1 tab Quetiapine Fumarate (Seroquel) 12.5 mg PO HS [facility] Last Admin: 07/09/18 22:09 Dose: 12.5 mg Results - Vital Signs Recent Vital Signs: Last Vital Signs Temp 97.6 F 07/10/18 08:01 Pulse 67 07/10/18 08:01 Resp 19 07/10/18 08:01 BP 177/83 H 07/10/18 08:01 Pulse Ox 100 07/10/18 08:01 - Labs Result Diagrams: 07/09/18 12:55 07/09/18 12:55 Labs: Laboratory Results - last 24 hr 07/09/18 07/09/18 07/09/18 12:48 12:55 12:55 WBC 4.8 RBC 3.55 L Hgb 10.7 L Hct 32.8 L MCV 92.2 MCH 30.1 MCHC 32.6 L RDW 13.5 Plt Count 172 MPV 9.3 Neut % (Auto) 65.5 Lymph % (Auto) 24.1 [place] % (Auto) 8.4 Eos % (Auto) 1.5 Baso % (Auto) 0.5 Neut # (Auto) 3.1 Lymph # (Auto) 1.2 [place] # (Auto) 0.4 Eos # (Auto) 0.1 Baso # (Auto) 0.0 pO2 17 L VBG pH 7.30 L VBG pCO2 57 VBG HCO3 23.6 VBG Total CO2 29.7 H VBG O2 Sat (Calc) 25.0 L VBG Base Excess 0.6 VBG Potassium 4.3 Sodium 137.0 138 Chloride 108.0 H 105 Glucose 138 H Lactate 1.1 FiO2 21.0 Potassium 4.4 Carbon Dioxide 27 Anion Gap 10 BUN 18 Creatinine 1.0 Est GFR ( Amer) > 60 Est GFR (Non-Af Amer) > 60 POC Glucose (mg/dL) Random Glucose 128 H Calcium 8.5 Total Bilirubin 0.8 AST 19 ALT 16 L D Alkaline Phosphatase 72 Total Protein 6.1 L Albumin 3.4 L Globulin 2.7 Albumin/Globulin Ratio 1.2 Venous Blood Potassium 4.3 07/09/18 07/10/18 07/10/18 21:40 06:32 11:20 WBC RBC Hgb Hct MCV MCH MCHC RDW Plt Count MPV Neut % (Auto) Lymph % (Auto) [place] % (Auto) Eos % (Auto) Baso % (Auto) Neut # (Auto) Lymph # (Auto) [place] # (Auto) Eos # (Auto) Baso # (Auto) pO2 VBG pH VBG pCO2 VBG HCO3 VBG Total CO2 VBG O2 Sat (Calc) VBG Base Excess VBG Potassium Sodium Chloride Glucose Lactate FiO2 Potassium Carbon Dioxide Anion Gap BUN Creatinine Est GFR ( Amer) Est GFR (Non-Af Amer) POC Glucose (mg/dL) 101 107 192 H Random Glucose Calcium Total Bilirubin AST ALT Alkaline Phosphatase Total Protein Albumin Globulin Albumin/Globulin Ratio Venous Blood Potassium
[2018-07-10 16:36] VITALS: BP 142/77; PULSE 70; RESP 20; TEMP 97.5; O2SAT 98
--- NOTE | 2018-07-11 10:16 | CP.PCM.DIS ---
Provider - Provider Date of Admission: 07/09/18 15:27 Attending physician: Jc Jon MD Consults: 07/09/18 15:27 Psychiatry Consult Stat Comment: Consulting Provider: Hui Hendricks Consulting Physician: Hui Hendricks Reason for Consult: dementia 07/10/18 08:00 Psychiatry Consult Routine Comment: Dementia Consulting Provider: Afia Steel Consulting Physician: Afia Steel Reason for Consult: Dementia Time Spent in preparation of Discharge (in minutes): 25 Diagnosis - Discharge Diagnosis (1) Hypotension Status: Acute (2) Autonomic dysfunction Status: Acute (3) Dementia Status: Acute (4) Parkinson disease Status: Acute Hospital Course - Lab Results Lab Results: Most Recent Lab Values WBC 4.8 K/uL (4.8-10.8) 07/09/18 12:55 RBC 3.55 Mil/uL (4.40-5.90) L 07/09/18 12:55 Hgb 10.7 g/dL (12.0-18.0) L 07/09/18 12:55 Hct 32.8 % (35.0-51.0) L 07/09/18 12:55 MCV 92.2 fl (80.0-94.0) 07/09/18 12:55 MCH 30.1 pg (27.0-31.0) 07/09/18 12:55 MCHC 32.6 g/dL (33.0-37.0) L 07/09/18 12:55 RDW 13.5 % (11.5-14.5) 07/09/18 12:55 Plt Count 172 K/uL (130-400) 07/09/18 12:55 MPV 9.3 fl (7.2-11.7) 07/09/18 12:55 Neut % (Auto) 65.5 % (50.0-75.0) 07/09/18 12:55 Lymph % (Auto) 24.1 % (20.0-40.0) 07/09/18 12:55 [place] % (Auto) 8.4 % (0.0-10.0) 07/09/18 12:55 Eos % (Auto) 1.5 % (0.0-4.0) 07/09/18 12:55 Baso % (Auto) 0.5 % (0.0-2.0) 07/09/18 12:55 Neut # (Auto) 3.1 K/uL (1.8-7.0) 07/09/18 12:55 Lymph # (Auto) 1.2 K/uL (1.0-4.3) 07/09/18 12:55 [place] # (Auto) 0.4 K/uL (0.0-0.8) 07/09/18 12:55 Eos # (Auto) 0.1 K/uL (0.0-0.7) 07/09/18 12:55 Baso # (Auto) 0.0 K/uL (0.0-0.2) 07/09/18 12:55 pO2 17 mm/Hg (30-55) L 07/09/18 12:48 VBG pH 7.30 (7.32-7.43) L 07/09/18 12:48 VBG pCO2 57 mmHg (40-60) 07/09/18 12:48 VBG HCO3 23.6 mmol/L 07/09/18 12:48 VBG Total CO2 29.7 mmol/L (22-28) H 07/09/18 12:48 VBG O2 Sat (Calc) 25.0 % (40-65) L 07/09/18 12:48 VBG Base Excess 0.6 mmol/L (0.0-2.0) 07/09/18 12:48 VBG Potassium 4.3 mmol/L (3.6-5.2) 07/09/18 12:48 Sodium 137.0 mmol/L (132-148) 07/09/18 12:48 Chloride 108.0 mmol/L (98-107) H 07/09/18 12:48 Glucose 138 mg/dL (75-110) H 07/09/18 12:48 Lactate 1.1 mmol/L (0.7-2.1) 07/09/18 12:48 FiO2 21.0 % 07/09/18 12:48 Sodium 138 mmol/l (132-148) 07/09/18 12:55 Potassium 4.4 MMOL/L (3.6-5.0) 07/09/18 12:55 Chloride 105 mmol/L (98-107) 07/09/18 12:55 Carbon Dioxide 27 mmol/L (22-30) 07/09/18 12:55 Anion Gap 10 (10-20) 07/09/18 12:55 BUN 18 mg/dl (9-20) 07/09/18 12:55 Creatinine 1.0 mg/dl (0.8-1.5) 07/09/18 12:55 Est GFR ( Amer) > 60 07/09/18 12:55 Est GFR (Non-Af Amer) > 60 07/09/18 12:55 POC Glucose (mg/dL) 130 mg/dL (65-110) H 07/10/18 16:00 Random Glucose 128 mg/dL (75-110) H 07/09/18 12:55 Calcium 8.5 mg/dL (8.4-10.2) 07/09/18 12:55 Total Bilirubin 0.8 mg/dl (0.2-1.3) 07/09/18 12:55 AST 19 U/L (17-59) 07/09/18 12:55 ALT 16 U/L (21-72) L D 07/09/18 12:55 Alkaline Phosphatase 72 U/L (38-126) 07/09/18 12:55 Total Protein 6.1 G/DL (6.3-8.2) L 07/09/18 12:55 Albumin 3.4 g/dL (3.5-5.0) L 07/09/18 12:55 Globulin 2.7 gm/dL (2.2-3.9) 07/09/18 12:55 Albumin/Globulin Ratio 1.2 (1.0-2.1) 07/09/18 12:55 Venous Blood Potassium 4.3 mmol/L (3.6-5.2) 07/09/18 12:48 Discharge Exam - Head Exam Head Exam: ATRAUMATIC, NORMAL INSPECTION, NORMOCEPHALIC Discharge Plan - Follow Up Plan Condition: STABLE Disposition: HOME/ ROUTINE Instructions: Vertigo (a Type of Dizziness) (DC), Low Blood Pressure (DC) Additional Instructions: follow up with primary MD 1 week Referrals: Hui Hendricks MD [Medical Doctor] - Jc Jon MD [Staff Provider] -
== END 2018-07-10 18:18 | disposition home or self-care (01) ==
LOC: H.ER 12:13 → H.ERHOLD 15:27 → H.MEDSURG1 17:30
PROVIDERS: ADMIT Internal Medicine; ATTEND Internal Medicine
DX: I95.9 Hypotension, unspecified (principal); E86.0 Dehydration; G20 Parkinson's disease; F02.80 Dementia in other diseases classified elsewhere, unspecified severity, without behavioral disturbance, psychotic disturbance, mood disturbance, and anxiety; Z79.4 Long term (current) use of insulin; F32.9 Major depressive disorder, single episode, unspecified; R41.9 Unspecified symptoms and signs involving cognitive functions and awareness
CPT/HCPCS: 80053; 82803; 82948; 85025; 93005; 99285; G0378; J7030